=== PATIENT | female | born 1960 | race Caucasian/White ===

== ENCOUNTER 2025-04-13 08:34 | Outpatient (CLI) | payer MEDICARE, SELFPAY ==
--- NOTE | 2025-04-13 08:50 | MM_ITS ---
WS: [id number] SCREENING DIGITAL BREAST TOMOSYNTHESIS MAMMOGRAM WITH CAD HISTORY: SCREENING COMPARISON: None available. Bilateral CC and MLO with tomosynthesis and synthetic mammography submitted. Computer aided detection analyzed. Breast composition: There are scattered areas of fibroglandular density. Area of architectural distortion in the upper outer quadrant RIGHT breast at a middle depth. Area of distortion measures 1.5 x 1.2 cm. No associated calcifications. Focal asymmetry in the upper outer quadrant of the LEFT breast needs further evaluation. There is no distortion or associated calcification. MM/MM [facility] tomosynthesis [id number] IMPRESSION: BI-RADS: 0 - Incomplete: Need additional imaging evaluation. FOLLOW UP: Need Additional Imaging RIGHT breast: Spot compression views (CC and MLO). True ML. Ultrasound to follo w if abnormality persists. LEFT breast: Spot compression views (CC and MLO). True ML. Ultrasound to follow if abnormality persists.
== END 2025-04-13 08:35 | disposition home or self-care (01) ==
LOC: RAD 08:42
PROVIDERS: PCP Family Medicine; Visit Provider Physician Assistant
DX: Z12.31 Encounter for screening mammogram for malignant neoplasm of breast (principal); R92.323 Mammographic fibroglandular density, bilateral breasts; R92.8 Other abnormal and inconclusive findings on diagnostic imaging of breast; N64.89 Other specified disorders of breast
CPT/HCPCS: 77063; 77067

== ENCOUNTER 2025-04-22 14:00 | Outpatient (CLI) | payer MEDICARE, SELFPAY ==
--- NOTE | 2025-04-22 14:12 | XR_ITS ---
WS: [id number] DEXA (DUAL ENERGY X-RAY ABSORPTIOMETRY) Bone mineral density was performed using a Pharmaxis machine. HISTORY: ASYMPTOMATIC POST MENOPAUSAL COMPARISON: None available. Lumbar spine BMD (L1-L4): 1.010 g/cm2 T score: -1.4 Z score: 0.6 Total hip BMD: Left: 0.824 g/cm2. T score: -1.5 Z score: 0.1 Right: 0.839 g/cm2. T score: -1.3 Z score: 0.2 10 year probability of a major osteoporotic fracture is 12.6%. XR/XR DEXA axial skeleton* [id number] IMPRESSION: OSTEOPENIA based upon the WHO classification for females.
== END 2025-04-22 14:01 | disposition home or self-care (01) ==
LOC: RAD 14:06
PROVIDERS: PCP Physician Assistant; Visit Provider Physician Assistant
DX: Z13.820 Encounter for screening for osteoporosis (principal); Z78.0 Asymptomatic menopausal state
CPT/HCPCS: 77080

== ENCOUNTER 2025-05-03 12:15 | Outpatient (CLI) | payer MEDICARE, SELFPAY ==
--- NOTE | 2025-05-03 12:26 | MM_ITS ---
WS: [id number] ADDITIONAL VIEWS BILATERAL MAMMOGRAM WITH DIGITAL BREAST TOMOSYNTHESIS. Bilateral breast ultrasound, limited HISTORY: ABNORMAL MAMMOGRAM COMPARISON: 04/13/2025 Spot compression views bilateral breast in CC, MLO projections and true ML submitted with digital breast tomosynthesis and SM. Breast composition: There are scattered areas of fibroglandular density. RIGHT: Spot compression views are performed. There is a spiculated mass with distortion in the upper outer quadrant of the RIGHT breast at a middle depth. Mass measures 11 x 8 x 18 mm. No associated calcifications. LEFT: Very minimal asymmetry persists in the superior lateral LEFT breast. No distortion identified. Ultrasound will be performed. Bilateral breast ultrasound, limited. RIGHT: Spiculated hypoechoic mass at 9:00, 2 cm from the nipple. Indistinct, angular margins with increased vascularity. Mass measures 1.5 x 1.2 x 2.2 cm and corresponds to the mammographic abnormality. LEFT breast: No abnormality in the upper outer quadrant. MM/MM diag BI tomosynthesis [id number] IMPRESSION: BI-RADS: 5 - Highly suggestive of Malignancy. FOLLOW UP: Biopsy Recommended Notified Christine Abarca MD at 05/03/2025 1:53 PM.
== END 2025-05-03 12:16 | disposition home or self-care (01) ==
LOC: RAD 12:18
PROVIDERS: PCP Physician Assistant; Visit Provider Family Medicine
DX: R92.8 Other abnormal and inconclusive findings on diagnostic imaging of breast (principal); N63.11 Unspecified lump in the right breast, upper outer quadrant; R92.321 Mammographic fibroglandular density, right breast
CPT/HCPCS: 76642; 77062; G0279

== ENCOUNTER 2025-05-18 12:03 | Outpatient (CLI) | payer MEDICARE, SELFPAY ==
--- NOTE | 2025-05-18 12:15 | US_ITS ---
WS: [id number] ULTRASOUND-GUIDED RIGHT BREAST BIOPSY CLINICAL INFORMATION: MASS OF R BREAST ON MAMMOGRAM FINDINGS: The procedure including risks, benefits, and complications were discussed with the patient who agreed to proceed. Using sterile technique patient was prepped and draped in the usual sterile fashion. After 1% lidocaine utilizing real-time ultrasound guidance 5 14-gauge cores were obtained of the RIGHT breast lesion at the 9 o'clock position 2 cm from the nipple. Subsequently a titanium clip was placed in the biopsy cavity. No immediate complications. US/[place] [id number] IMPRESSION: 1. Uncomplicated ultrasound-guided RIGHT breast biopsy. 2. 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 Sca ttered microcalcifications. 3. Breast prognostic profile has been ordered and will be reported separately by pathology. 4. Recommend breast surgery consultation. DENSITY: There are scattered areas of fibroglandular density. BI-RADS: 6 - Known Biopsy - Proven Malignancy. FOLLOW UP: See Report RECOMMEND BREAST SURGERY CONSULTATION.
[2025-05-24 14:08] LABS: Breast Profile ER,PR,HER2,Ki-6 See Report
== END 2025-05-18 12:04 | disposition home or self-care (01) ==
PROVIDERS: PCP Physician Assistant; Visit Provider Physician Assistant
DX: C50.811 Malignant neoplasm of overlapping sites of right female breast (principal); R92.0 Mammographic microcalcification found on diagnostic imaging of breast
CPT/HCPCS: 19083; 88305; 88361; 88374